=== PATIENT | male | born 1940 | race Caucasian/White ===

== ENCOUNTER 2021-02-03 10:12 | Inpatient (IN) | payer MEDICARE, MEDICAID, SELFPAY ==
[2021-02-03] VITALS (49 sets, daily range): BP systolic 110–174; BP diastolic 77–110; PULSE 61–95; RESP 12–28; TEMP 36.6–36.9; O2SAT 91–95; BMI 24.3
--- NOTE | 2021-02-03 10:27 | USR_ITS ---
PROCEDURE INFORMATION: Exam: US Duplex Right Lower Extremity Arteries Or Arterial Bypass Grafts Exam date and time: 02/03/2021 10:27 AM Age: 81 years old Clinical indication: Pain; Leg, lower; Right; Additional info: Ischemic limb TECHNIQUE: Imaging protocol: Right Real-time duplex scan of the arteries or arterial bypass grafts of the right lower extremity with 2-D diaz scale, color Doppler flow and spectral waveform analysis. Images documented and saved. COMPARISON: No relevant prior studies available. FINDINGS: Right external iliac artery: Slow flow in the right external iliac artery. Right common femoral artery: Slow flow in the right common femoral artery. Right superficial femoral artery: Occluded right superficial femoral artery. Right popliteal artery: Occluded right popliteal artery. Right calf/foot arteries: Occluded right posterior tibial artery. Occluded right dorsalis pedis artery. Soft tissues: No hematoma or collection. US/[place] [id number] IMPRESSION: 1. Slow flow in the right external iliac artery. 2. Slow flow in the right common femoral artery. 3. Occluded right superficial femoral artery. 4. Occluded right popliteal artery. 5. Occluded right posterior tibial artery. 6. Occluded right dorsalis pedis artery.
--- NOTE | 2021-02-03 10:46 | PC.NURSE ---
us in room for us
--- NOTE | 2021-02-03 10:52 | W.ED.EXTPRO ---
HPI - Extremity Problem General: Chief complaint: Extremity Injury, Lower Stated complaint: RIGHT LOWER EXT PAIN Time Seen by Provider: 02/03/21 10:12 History of Present Illness: HPI Narrative: 81-year-old male presents to the emergency room from the local longterm with complaint of a polyp pulseless ischemic cold right lower leg. Patient has known history coronary disease previous smoker. However at the bad bedside. Patient not much to historian and answer a few simple questions feeling and gives most of the detailed history. Evidently this began. morning. MD Complaint: extremity pain Onset (ago): hour(s) Pain Consistency: constant Location: right and lower extremity Quality: aching Radiation: none Relieving factors: nothing Exacerbating factors: nothing Associated symptoms: Reports myalgias; Deny arthralgias, chest pain, fever(s), rash or short of breath Review of Systems Const: Denies: fever(s) ENMT: Denies: throat pain, ear or mastoid pain, nasal discharge or nasal congestion Card: Denies: chest pain Resp: Denies: dyspnea, productive cough or non-productive cough GI: Denies: abdominal pain, nausea, vomiting, hematemesis, coffee ground emesis, diarrhea, constipation, bloating, hematochezia or melena : Denies: flank pain, dysuria, urinary frequency or urinary urgency Skin/Breast: Denies: rash PFSH ED PFSH: Medical History CAD (coronary artery disease) Social History Smoking and tobacco status: former smoker Physical Exam Const: GENERAL APPEARANCE: cooperative HENMT: COMMON NORMALS: normocephalic, atraumatic and hearing grossly normal bilaterally HEAD & SCALP: normocephalic and atraumatic Neck/C-Spine: COMMON NORMALS: no JVD Resp: COMMON NORMALS: normal respiratory effort, No retractions, No use of accessory muscles and clear to auscultation bilaterally AUSCULTATION: clear to auscultation bilaterally Cardio: COMMON NORMALS: no JVD, regular rate, regular rhythm and No murmurs present (Cardio) RATE: regular rate RHYTHM: regular rhythm GI: COMMON NORMALS: Soft to palpation and No hepatosplenomegaly present AUSCULTATION: Yes normoactive bowel sounds PALPATION: Yes Soft to palpation, No Tenderness to palpation present (GI), No Guarding due to palpation present (GI) and Yes No hepatosplenomegaly present Extremity: NARRATIVE EXTREMITY EXAM: Femoral pulse palpable on the right inguinal region no palpable pulses at the popliteal posterior tibialis or down dorsalis pedis. The lower half of the right lower leg is mottled cold to the touch and pale slightly ischemic at the toes. Bilaterally there are what appear to be chronic ischemic ulcers on the toes with dry eschars in place no sign of infection. Course Vital Signs: Vital signs: Vital Signs Temperature 98.4 F 02/03/21 10:13 Pulse Rate 68 02/03/21 11:40 Respiratory Rate 17 02/03/21 11:40 Blood Pressure 141/94 02/03/21 11:40 Pulse Oximetry 95 02/03/21 11:40 MDM - Extremity (Nontraumatic) MDM Narrative: Medical decision making narrative: Cussed with Dr. Noguera and Dr. Betancourt. Dr. Noguera will take directly to the Property Caretaker. Have started on heparin. Lab Data: Labs: Lab Results 02/03/21 02/03/21 02/03/21 Range/Units 11:03 11:03 11:03 WBC 10.6 H (4.0-10.0) 10^3/ uL RBC 5.60 H (4.1-5.3) 10^6/u L Hgb 16.8 H (11.7-16.6) g/dL Hct 51.0 (42.0-52.0) % MCV 91.1 (80-94) fL MCH 30.0 (28.0-34.0) pg MCHC 32.9 (30.0-36.0) g/dL RDW 13.1 (12.1-15.1) % Plt Count 116 L (130-400) 10^3/c mm MPV 10.2 (7.4-10.4) fL Neut % (Auto) 71.3 % Lymph % (Auto) 17.7 % Kemper % (Auto) 9.9 % Eos % (Auto) 0.4 % Baso % (Auto) 0.4 % Neut # (Auto) 7.59 (1.8-7.7) 10^3/u L Lymph # (Auto) 1.9 (0.8-4.8) 10^3/u L Kemper # (Auto) 1.1 H (0.2-0.9) 10^3/u L Eos # (Auto) 0.0 (0.0-0.8) 10^3/u L Baso # (Auto) 0.0 (0.0-0.1) 10^3/u L Nucleated RBC % (a uto) 0 % Nucleated RBCs # 0.0 /100WBC PT 15.00 H (12.1-14.9) SECO NDS INR 1.15 (0.8-1.2) APTT 25.9 (23.9-36.7) SECO NDS Sodium 137 (136-145) mmol/L Potassium 4.1 (3.5-5.1) mmol/L Chloride 104 (98-107) mmol/L Carbon Dioxide 25 (22-29) mmol/L Anion Gap 12.1 (5-19) BUN 20 (8-23) mg/dL Creatinine 0.6 L (0.7-1.2) mg/dL GFR Calculation Not Reportable Glucose 105 (65-115) mg/dL Calculated Osmolal ity 287 (285-295) mOsm/k g Calcium 9.2 (8.5-10.5) mg/dL Discharge Plan Discharge Patient Disposition: Admitted As Inpatient Clinical Impression: Ischemia of right lower extremity, CAD (coronary artery disease), Peripheral arterial disease Condition: Stable Coding Level of Care Code ED Showcase Maker for Maximilian Ortega
--- NOTE | 2021-02-03 11:05 | PC.PHAR ---
pt is from [facility]-spoke to pts nurse ferraro states the pt only takes prn medications-pts mar only has prn meds
[2021-02-03 11:11] LABS: Basophils % 0.4 %; Eosinophils % 0.4 %; Hemoglobin 16.8 g/dL (11.7-16.6); Lymphocytes # 1.9 10^3/uL (0.8-4.8); Lymphocytes % 17.7 %; Mean Corpuscular HGB Conc 32.9 g/dL (30.0-36.0); Mean Corpuscular Volume 91.1 fL (80-94); Mean Platelet Volume 10.2 fL (7.4-10.4); Monocytes # 1.1 10^3/uL (0.2-0.9); Monocytes % 9.9 %; Neutrophils # 7.59 10^3/uL (1.8-7.7); Neutrophils % 71.3 %; Nucleated Red Blood Cells % 0 %; Platelet Count 116 10^3/cmm (130-400); Red Cell Distribution Width 13.1 % (12.1-15.1); White Blood Count 10.6 10^3/uL (4.0-10.0)
[2021-02-03 11:28] LABS: Slide Review Slide Review Perform
[2021-02-03 11:30] LABS: Anion Gap 12.1 (5-19); Blood Urea Nitrogen 20 mg/dL (8-23); Calcium 9.2 mg/dL (8.5-10.5); Carbon Dioxide 25 mmol/L (22-29); Chloride 104 mmol/L (98-107); Glucose 105 mg/dL (65-115); Osmolality Calculated 287 mOsm/kg (285-295); Potassium 4.1 mmol/L (3.5-5.1); Sodium 137 mmol/L (136-145)
[2021-02-03] MEDS: heparin drip 25,000 UNIT/500 ML PREMIX 21 UNIT IV (11:36)
--- NOTE | 2021-02-03 11:36 | XACV_ITS ---
Ht: 178 cm Wt: 77 kg BSA: 1.96 m2 Gender: Male : 1940 Any Known Allergies: Other Exam Priority: Routine Procedure(s): Procedure Description: Diagnostic procedure Procedure Description: Peripheral Cath Diagnostic Procedure Procedure Description: Abdominal aortic angiography Procedure Description: Lower extremities' angiography Procedure Description: Peripheral vascular Intervention Procedure Description: PV Balloon Procedure Description: Miscellaneous Procedure Description: ACT Diagnostic Cath Status: Emergency Abdominal Diagnostic Findings Distal abdominal aorta patent. Lower Extremity Diagnostic Findings Right common iliac artery: Patent Right external iliac artery: Patent Right Profunda artery: Patent Right SFA: Ostial thrombotic occlusion. No flow was seen downstream. Left common iliac artery: Patent Left external iliac artery: Patent Left profunda artery: Patent Left SFA: Ostially occluded. It is reconstituted in the distal segment by collaterals from profunda. Below the knee imaging is not good. However popliteal and TP segments are patent. There is at least one vessel runoff to the foot and peroneal artery. Anterior tibial artery is likely occluded. Posterior tibial artery is not well visualized.. Indication 81-year-old man, custodial resident presented with cold right lower extremity. Duration of symptoms was unknown. Arterial Doppler ultrasound showed no flow from ostial SFA downstream. Patient brought emergently to Research Specialist for possible acute limb.. Lower Extremity Interventional Findings Procedure detail: We obtained access in left common femoral artery. IV heparin was used and ACT monitor. Using long sheath we went up and over into right external iliac artery. A Glidewire was used to cross the ostial occluded SFA and was advanced into TP segment. We used 5.0 x 40 mm balloon initially to dilate ostial SFA. Some flow was reestablished. Used a 5.0 x 250 mm [place] balloon to dilate the SFA from ostium to distal vessel. This was followed by balloon angioplasty with a 6.0 x 250 mm [place] balloon. At this time we performed final angiogram that showed excellent patency of the SFA artery. However patient had single-vessel runoff to the foot with patent posterior tibial artery. Glidewire and sheath were removed and switched for a short sheath. Short 6 Persian sheath was sutured in place for removal later. Conclusions Acute limb ischemia with thrombotic occlusion of the ostial SFA. Successful revascularization of the SFA. Patient has single vessel run off to the foot. Recommendations Transfer to CSU. Patient's symptom duration not known. Will need to closely follow labs and recovery of limb function as chances that the lower leg is no longer viable are high. Start Eliquis 2.5 mg BID. Continue Plavix. Pressures Phase:Rest AO : 178 / 93 ( 122 ) @ 11:28:00 AM 91 / 68 ( 79 ) @ 12:04:00 PM 105 / 61 ( 79 ) @ 12:12:00 PM 139 / 82 ( 104 ) @ 12:22:00 PM Hemodynamic Data Phase:Rest AO : 178.0 / 93.0 ( 122.0 ) @ 11:28:00 AM 91.0 / 68.0 ( 79.0 ) @ 12:04:00 PM 105.0 / 61.0 ( 79.0 ) @ 12:12:00 PM 139.0 / 82.0 ( 104.0 ) @ 12:22:00 PM Clinical Evaluation EBL: 5mL-10mL Procedural Details Procedure Consent Obtained. Pre-Procedure Time Out. Identified patient by full name and date of as verbalized by the patient/guarantor. Does the consent match the physician's order: Yes. Accurate & Complete Informed Consent: Yes. Inpatient/Outpatient History & Physical on Chart: Yes. If H&P is completed, is and addenduem needed: No; If yes, is the addendum complete: N/A. Visualize and Verify Site with Patient/Guarantor: N/A. Relevant Radiology Images available: N/A. Pre-op teaching completed and patient verbalized understanding. The risks, benefits, and alternatives of sedation and/or procedure were discussed by physician. The patient agrees to continue. Physician arrived. Procedure started. Correct patient, site and procedure confirmed by cath team. PERRLA. Strong, equal hand special education tutor bilaterally. Lungs clear x 5 lobes. IV Site on Arrival: 20 gauge in the left forearm. IV Fluids: 0.9% NaCl at KVO. 0 mL infused prior to analytical lab analyst. Pre Procedural Pulses: right dorsalis pedis was Absent. Pre Procedural Pulses: right posterior tibial was Absent. Pre Procedural Pulses: left dorsalis pedis was Doppled. Pre Procedural Pulses: left posterior tibial was Doppled. Oxygen started at 2liters/min via nasal canula. bilateral groins was prepped with chloroprep then draped in the usual sterile fashion. Equipment: Peripheral. Cardiac Cath Pack. ACIST Manifold Kit Model BT 2000. Heparinized Saline (2 units/mL), 1000 mL bag. Inventory is JJ 6F 11cm Margret Plus Sheath. Physician scrubbed in. Time out performed with cath team. Baseline sample Acquired. HR: 66 BPM. Lidocaine 1% infiltrated to the left groin. Arterial access obtained with micropuncture set. Needle and wire out. Arterial access obtained with micropuncture set. A JJ 5F RIM 65 cm Diagnostic Catheter was advanced over the wire and used for Lower extremity arteriography. RIght leg runoff 10 ml for total of 20 ml. Glidewire inserted. Catheter removed over the glide wire. Short 6 fr sheath exchanged for long 45 cm 6 fr Flexor sheath. Inventory is CK 6 FR FLEXOR SHEATH 45CM. Seeker Support catheter inserted over the wire. Glidewire and Seeker out. Hand injection performed. Hand injection performed. Glidewire inserted. Hand injection performed. Glidewire advance to right SFA. Inflation number : 1 A AB ARMADA 35 OTW [id number] was prepped and advanced across the Superficial Femoral, Right , then inflated to 8 JAMEEL for 0:36 seconds. Inflation number: 2 The AB [place] 35 OTW [id number] was reinflated across the Superficial Femoral, Right, to 8 JAMEEL for 0:33 seconds. Balloon out over wire. Right leg runoff 10 ml for total of 20 ml to check results. Inflation number : 3 A AB [place] 35 CLINICAL ADMINISTRATIVE COORDINATOR Catheter [id number] was prepped and advanced across the Superficial Femoral, Right , then inflated to 10 JAMEEL for 1:30 seconds. Inflation number: 4 The AB [place] 35 CLINICAL ADMINISTRATIVE COORDINATOR Catheter [id number] was reinflated across the Superficial Femoral, Right, to 10 JAMEEL for 1:28 seconds. Inflation number: 5 The AB [place] 35 CLINICAL ADMINISTRATIVE COORDINATOR Catheter [id number] was reinflated across the Superficial Femoral, Right, to 10 JAMEEL for 1:29 seconds. Balloon out over wire. Right leg runoff 10 ml for total of 30 ml to check results. Seeker catheter inserted over the wire. Seeker parked in popliteal. Glidewire out. Glidewire inserted to tibial peroneal trunck. Seeker out. Inflation number : 6 A AB [place] 35 CLINICAL ADMINISTRATIVE COORDINATOR Catheter [id number] was prepped and advanced across the Superficial Femoral, Right , then inflated to 6 JAMEEL for 1:31 seconds. Inflation number: 7 The AB [place] 35 CLINICAL ADMINISTRATIVE COORDINATOR Catheter [id number] was reinflated across the Superficial Femoral, Right, to 6 JAMEEL for 1:33 seconds. Inflation number: 8 The AB [place] 35 CLINICAL ADMINISTRATIVE COORDINATOR Catheter [id number] was reinflated across the Superficial Femoral, Right, to 6 JAMEEL for 1:33 seconds. Balloon out over wire. Right leg runoff through sheath. 10 ml for total of 30 ml. Glidewire out. Long 45 cm 6 fr Flexor sheath exchanged for short 6 fr sheath. A CORDIS 5F UF catheter 65cm was advanced over the wire and used for Abdominal aortogram with runoff. Abdominal aortogram performed in AP @ 10 mL/sec for a total of 30 mL. Catheter removed over the glide wire. Physician scrubbed out. A Suture was successful obtaining hemostatsis at the Left Femoral artery insertion site. Sheath(s) sutured into position with 2-0 silk and sterile 4x4's and Op-site applied over the site. No oozing or signs and symptoms of hematoma noted. Arterial sheath flushed and connected to tranducer and pressure bag with heparinized saline. Post Procedure: right posterior tibial pulse Doppled. PERRLA. Strong, equal hand special education tutor bilaterally. No VTE prophylaxis required. Medication's Wasted: Nitro = 49.7 mg. Medication's Wasted: Heparin = 1000 units. Total IV fluids: 80 mL. Contrast type used: Visipaque 320 mgI/mL, 500 mL bottle. Post-op diagnosis: Critical limb ischemia. Complications: none. Estimated blood loss: 5mL-10mL. Procedure completed. Patient transferred by bed to 1st floor. Vital chart was stopped. ACT drawn. Results 262 seconds. Therapeutic limits - pre-heparin administration 90-150 seconds and monitoring heparin during a vascular procedure >250 seconds. Access Site Site: Left Femoral artery Sheath Size: 6 Fr Hemostasis Method: Suture Hemostasis Success: Successful Procedure Medications Start: 12:17 PM Stop: 12:17 PM Medication: Versed Amount: 1 mg Route: I.V. Start: 12:17 PM Stop: 12:17 PM Medication: Fentanyl Amount: 50 mcg Route: I.V. Start: 12:47 PM Stop: 12:47 PM Medication: Heparin Amount: 3000 units Route: I.V. Start: 1:01 PM Stop: 1:01 PM Medication: Nitrogylcerin Amount: 300 mcg Route: I.A. Start: 1:26 PM Stop: 1:26 PM Medication: Heparin Amount: 2000 units Route: I.V. I, the attending physician, have reviewed and verified all procedure medications. Yes, all medications given per verbal order History/Risk Factors Hypertension: No Dyslipidemia: No Peripheral Arterial Disease (PAD): Yes Myocardial Infarction (DC): Yes Obesity: No Renal Disease: No Prior Interventions PCI: No CABG: No Valve Surgery: No Report Signatures Finalized by Jeffrey White MD on 02/19/2021 09:53 AM
[2021-02-03] MEDS: heparin 5,000 unit/mL INJ 1 mL 4000 UNIT IVP (11:37)
--- NOTE | 2021-02-03 11:44 | PM.CONSULT ---
Providers/Reason For Consult Consulting Physician/Specialty*: Jeffrey White MD/Cardiology Reason for Consult*: Acute limb ischemia of right lower extremity Requesting Physician: Dr Taylor Primary Care Provider: iRchard Cruz DO History of Present Illness History of Present Illness Darío Nix is a 81 year old male with past medical history of hypertension, coronary artery disease who has presented with right lower extremity severe pain. Patient is a residential resident. According to his daughter, residential called this morning that his right lower extremity is cold and does not have any palpable pulses. Skin mottling is also noted. Arterial duplex performed in the ER shows no flow below common femoral artery on the right side.Patient is unable to move right toes. Tender to touch. No pulses are palpable. Review of Systems General: Reports: 10 or more systems reviewed and unremarkable except in HPI and below Meds/Allergies Home Medications and Allergies Home Medications Medication Instructions Recorded Confirmed Last Taken Type acetaminophen [Tylenol] 650 mg PO Q6H PRN 02/03/21 02/03/21 02/03/21 09:00 History bisacodyl [Dulcolax (bisacodyl)] 10 mg PO DAILY PRN 02/03/21 02/03/21 Unknown History bisacodyl [Dulcolax (bisacodyl)] 10 mg RI DAILY PRN 02/03/21 02/03/21 Unknown History magnesium hydroxide [Milk of 30 ml PO DAILY PRN 02/03/21 02/03/21 Unknown History Magnesia] naloxone See Rx Instructions .ROUTE .COMPLEX 02/03/21 02/03/21 Unknown History sodium phosphates [Fleet Enema] 118 ml RI DAILY PRN 02/03/21 02/03/21 Unknown History Allergies Allergy/AdvReac Type Severity Reaction Status Date / Time naproxen [From Aleve] Allergy Unknown Verified 02/03/21 11:01 Current Medications Current Medications Generic Name Dose Route Start Last Admin Trade Name Freq PRN Reason Stop Dose Admin Heparin Sodium/Sodium Chloride 25,000 unit in 500 mls @ 0 mls/hr 02/03/21 11:00 02/03/21 11:36 Heparin Drip IV 13.62 unit/kg/hr .Q0M NAZ 21 mls/hr Administration Protocol Per Protocol PFSH Acute PFSH: Medical History CAD (coronary artery disease) Social History Smoking and tobacco status: former smoker Vitals/I&O/Wt Last Vital Signs Temp 98.4 F 02/03/21 10:13 Pulse 68 02/03/21 11:40 Resp 17 02/03/21 11:40 BP 141/94 02/03/21 11:40 Pulse Ox 95 02/03/21 11:40 Weight last 48 hrs Weight 170 lb Physical Exam Narrative: EXAM NARRATIVE: GENERAL: Patient is alert, awake and oriented x3. [] NECK: No jugular vein distension. [] HEENT: No cyanosis. No icterus. No pallor. [] HEART: Regular S1 and S2. No murmur, rub or gallop. [] LUNGS: Clear to auscultate bilaterally. [] ABDOMEN: Soft, nontender and nondistended. Positive bowel sounds. No guarding, rebound or tenderness. [] CENTRAL NERVOUS SYSTEM: Grossly nonfocal. [] EXTREMITIES: Right lower extremity is cool to touch. Unable to move right foot. Skin mottling is noted. There are small ulcers seen on the dorsum of right foot. Pulses are not palpable on the right side. Tender to touch A&P Assessment and plan (1) Limb ischemia: Status: Acute (2) CAD (coronary artery disease): Status: Acute Patient's symptom duration is not known however has features of acute limb ischemia. Doppler ultrasound confirming no flow below right common femoral artery. Patient's leg is pulseless, cold, tender to touch and he has inability to move. Mottling noted. We will proceed with peripheral angiogram with potential revascularization of right lower extremity emergently. Start heparin drip. We will follow on labs. Echocardiogram with contrast Discussed in detail with the patient and his daughter who is medical power of attorney lawyer. They understand the risks and benefits of the procedure and want to proceed with it. Thank you for involving us with the care of this patient. We will continue to follow. Please call with questions. Coding Level of Care Code Acute Civil Engineer Helper for Maximilian Ortega Diagnoses Limb ischemia I99.8 CAD (coronary artery disease) I25.10
[2021-02-03 11:46] LABS: INR 1.15 (0.8-1.2)
[2021-02-03 11:47] LABS: Partial Thromboplastin Time 25.9 SECONDS (23.9-36.7)
--- NOTE | 2021-02-03 12:09 | W.PM.OPSUD ---
Surgery/Procedure H&P Update DATE OF PROCEDURE: February 03, 2021 DATE H&P PERFORMED: 02/03/21 H&P UPDATE INFORMATION: I have reviewed H&P completed within last 30 days, I have examined patient prior to procedure and No changes to prior documentation PREOP DIAGNOSIS: Acute limb ischemia PRIMARY INDICATION FOR PROCEDURE: Acute limb ischemia PLANNED PROCEDURE: Peripheral angiogram with possible percutaneous peripheral intervention PATIENT REASSESSED PRIOR TO SEDATION, WITH NO CHANGE NOTED: Yes PHYSICAL EXAM: alert, oriented x 3, clear to auscultation bilaterally and regular rate & rhythm AIRWAY EVAL/ANESTHESIA PLAN: ASA III, Monitored Anesthesia, Local Anesthesia, Risks, benefits & alternatives of sedation and/or procedure discussed and Patient agrees to continue as planned
[2021-02-03] MEDS: clopidogrel 300 mg Tablet 600 MG PO (14:50)
[2021-02-03] MEDS: nitroglycerin 1 gm/inch oint Pkt 0.5 INCH TOPICAL (14:51)
--- NOTE | 2021-02-03 15:24 | PC.NURSE ---
received from cardiac shift lab technician via bed at 1400.report received.pt is awake.hx of dementia.oriented to self.daughter at bedside.sr on monitor.right leg is slightly discolored from knee down.cool to touch from below knee to ankle...and cold to touch at foot.post tibial pulses are dopplerable bilat.no dp pulses noted bilat.left groin with arterial sheath intact to pressurized system.drsg is dry and intact.no hematoma formation noted.instructed pt and daughter in activity restrictions s/p arterial procedure..and instructed to notify staff for any bleeding,pain,numbness..or for any concerns at all.they verb understanding of instructions.
--- NOTE | 2021-02-03 15:49 | PC.NURSE ---
right dorsalis pedis pulse now dopplerable.right leg is warm to touch to ankle now.still slightly discolored.
[2021-02-03] MEDS: amlodipine 5 mg Tablet PO (16:40)
[2021-02-03 16:53] LABS: Lactic Sepsis W/Reflex 1.4 mmol/L (0.5-2.2)
[2021-02-03 17:09] LABS: Partial Thromboplastin Time 137.5 SECONDS (23.9-36.7)
--- NOTE | 2021-02-03 17:29 | P.HP_ITS ---
Providers/Chief Complaint Admitting Physician: Jeffrey White M.D Primary Care Provider: Richard Cruz DO Chief Complaint: RIGHT LOWER EXT PAIN History of Present Illness 79-year-old with a past medical history significant for dementia, arthritis, left lower extremity DVT in 2011 previously on Coumadin, hypertension and coronary disease who presented to the hospital with right lower extremity pain and discoloration. Patient is a long-term resident halfway who apparently had noted bluish discoloration of his lower extremity earlier today. Apparently no pulse was noted and extremity was cold to touch. Daughter is at bedside however not able to provide any additional information.Laboratory workup arrival showed a WBC of 10.6, hemoglobin is 16.8, hematocrit of 51.0 and a platelet count of 116, INR 1.15, sodium 137, potassium 4.1, chloride 104, bicarb 25, BUN 20 and creatinine of 0.6.Lower extremity arterial duplex showed significantly decreased flow an arteries of right lower extremity. Interventional cardiology was consulted and patient was taken her peripheral angiogram. Postprocedure continues to complain of pain in right foot. Results of procedure pe nding.Emergency room prior to procedure patient was given Plavix 600 mg x 1 and heparin. Review of Systems General: Reports: ROS unobtainable due to mental status Medications/Allergies Home Medications Medication Instructions Recorded Confirmed Last Taken Type acetaminophen [Tylenol] 650 mg PO Q6H PRN 02/03/21 02/03/21 02/03/21 09:00 History bisacodyl [Dulcolax (bisacodyl)] 10 mg PO DAILY PRN 02/03/21 02/03/21 Unknown Hi story bisacodyl [Dulcolax (bisacodyl)] 10 mg LA DAILY PRN 02/03/21 02/03/21 Unknown History magnesium hydroxide [Milk of 30 ml PO DAILY PRN 02/03/21 02/03/21 Unknown History Magnesia] naloxone See Rx Instructions .ROUTE .COMPLEX 02/03/21 02/03/21 Unknown History sodium phosphates [Fleet Enema] 118 ml LA DAILY PRN 02/03/21 02/03/21 Unknown History Allergies Allergy/AdvReac Type Severity Reaction Status Date / Time naproxen [From Aleve] Allergy Unknown Verified 02/03/21 11:01 PFSH Acute PFSH: Medical History CAD (coronary artery disease) Social History Smoking and tobacco status: former smoker Vitals/I&O/Wt Last Vital Signs Temp 98.2 F 02/03/21 15:33 Pulse 67 02/03/21 15:33 Resp 21 H 02/03/21 15:33 BP 135/85 02/03/21 15:33 Pulse Ox 95 02/03/21 15:33 Weight last 48 hrs Weight 77.111 kg Physical Exam Narrative: EXAM NARRATIVE: General- alert and awake however not able to provide history HEENT -grossly unremarkable CVS- regular rate rhythm Chest- clear to auscultation bilaterally Abdomen-soft nontender nondistended Extremities- right lower extremity discoloration, cool to touch, unable to palpate pulses in right lower extremity Data : 02/03/21 11:03 02/03/21 11:03 A&P Assessment and plan (1) Limb ischemia: Status: Acute (2) CAD (coronary artery disease): Status: Acute (3) Dementia: Status: Acute (4) intermediate resident: Status: Acute (5) Hx of deep venous thrombosis: Status: Acute (6) Thrombocytopenia: Status: Acute Additional A&P Information Acute right lower extremity ischemia / PVOD / Reported CAD See atrial duplex noted above Plavix 600 mg loading x 1 in ER Heparin in ER - Defer to cardiology S/P peripheral angiogram - follow up on report Check Lipid panel in am NS at 100 cc/hr ECHO with contrast pending. Pain control Hypertension Started on Norvasc 5 mg PO daily Hx of LLE DVT in 2011 No longer on comadin Thrombocytopenia Etiology unclear Repeat BMP in am Dementia Stable CODE : D/W daughter at bedside who is DPOA - > A.N.D Attestations Medical Necessity Statement*: Likely require over2 midnight stay in hospital for evaluation and treatment of acute limb ischemia Time Spent in Patient Care: Greater than 35 minutes (>than 50% of time spent in counselling and/or direct pt care on unit) . Coding Level of Care Code Acute Audiometric Technician for Maximilian Ortega Diagnoses Limb ischemia I99.8 CAD (coronary artery disease) I25.10 Dementia F03.90 intermediate resident Z59.3 Hx of deep venous thrombosis Z86.718 Thrombocytopenia D69.6
[2021-02-03] MEDS: morphine 4 mg/mL SDV 1 mL 2 MG IVP ×2 (17:40→21:25)
--- NOTE | 2021-02-03 18:45 | PC.NURSE ---
incinerator plant laborer stated that NS fluids to be stopped 8 hours after starting per Dr. White.
[2021-02-03] MEDS: HYDROcodone-acetaminophen 5-325 mg Tablet 1 TAB PO (18:57)
--- NOTE | 2021-02-03 19:03 | PC.NURSE ---
bilat le's and feet remain warm to touch...with dopplerable dp and pt pulses.ptt 137.5.will recheck ptt at 1900.
--- NOTE | 2021-02-03 19:38 | PC.NURSE ---
Dr. White notified of patient stating I'm gonna have to have some kind of relief from this pain. Patient has received 2 mg Morphine and [place]. Ordered to give Tylenol.
[2021-02-03 19:39] LABS: Partial Thromboplastin Time 29.4 SECONDS (23.9-36.7)
[2021-02-03] MEDS: acetaminophen 325 mg Tablet 650 MG PO (19:42)
--- NOTE | 2021-02-03 20:10 | PC.NURSE ---
Dr. White notified of patient sometimes complaining of pain in left lower leg and sometimes in right lower leg. Patient has pain to touch in both lower legs. Patient has doppable pulses in bilateral DP and PT. Right lower leg is red and hot.
--- NOTE | 2021-02-03 20:26 | PC.NURSE ---
Dr. Peters in room to see patient.
[2021-02-03] MEDS: fentaNYL 50 mcg/mL INJ 2mL IVP (20:31)
--- NOTE | 2021-02-03 20:41 | P.MISC_ITS ---
Miscellaneous Note Purpose of Documentation: Post procedure Update Note: Patient underwent peripheral angiogram that showed occluded right ostial SFA. Balloon angioplasty was performed that restored blood flow. He has one- vessel runoff to the foot. Patient has not been able to move his foot and has decreased sensation (almost no sensation in the foot and tenderness above the ankle. Post procedure patient's foot is warm to touch. Right Leg below the knee has been tense. We will give IV Solu-Medrol, draw CBC and BMP along with a repeat lactic acid. He possibly has irreversible injury to the leg secondary to prolonged ischemic time prior to presenting to hospital. His dorsalis pedis is dopplerable. Will give more aggressive pain control. I had a discussion with the family that he may need amputation. Given the revascularization performed today, healing of stump will be much better in case of amputation. However prognosis is very guarded. They will have a discussion regarding goals of care and will inform how they want to proceed if he worsens. They may proceed with comfort care however decision has not been made yet. He is DNR DNI.
--- NOTE | 2021-02-03 21:10 | PC.NURSE ---
Sheath removed from left groin at 2040. Manual pressure held for 20 minutes. Patient tolerated well. VSS. Dressing applied. Site WNL limits. Distal pulses present per doppler. Will monitor.
[2021-02-03 21:35] LABS: Basophils % 0.3 %; Eosinophils % 0.1 %; Hematocrit 50.5 % (42.0-52.0); Hemoglobin 16.5 g/dL (11.7-16.6); Lymphocytes # 1.3 10^3/uL (0.8-4.8); Lymphocytes % 10.9 %; Mean Corpuscular HGB Conc 32.7 g/dL (30.0-36.0); Mean Corpuscular Hemoglobin 29.8 pg (28.0-34.0); Mean Corpuscular Volume 91.3 fL (80-94); Mean Platelet Volume 10.3 fL (7.4-10.4); Monocytes # 1.4 10^3/uL (0.2-0.9); Neutrophils # 8.82 10^3/uL (1.8-7.7); Neutrophils % 76.4 %; Nucleated Red Blood Cells % 0 %; Platelet Count 116 10^3/cmm (130-400); Red Blood Count 5.53 10^6/uL (4.1-5.3); Red Cell Distribution Width 13.2 % (12.1-15.1); White Blood Count 11.5 10^3/uL (4.0-10.0)
--- NOTE | 2021-02-03 21:55 | PC.NURSE ---
Patient is currently resting with eyes closed. Left groin site WNL. VSS. Will monitor.
[2021-02-03 21:57] LABS: Anion Gap 15.3 (5-19); Blood Urea Nitrogen 19 mg/dL (8-23); Calcium 8.6 mg/dL (8.5-10.5); Carbon Dioxide 21 mmol/L (22-29); Chloride 106 mmol/L (98-107); Glucose 111 mg/dL (65-115); Osmolality Calculated 289 mOsm/kg (285-295); Potassium 4.3 mmol/L (3.5-5.1); Sodium 138 mmol/L (136-145)
[2021-02-03 21:59] LABS: Lactate (Lactic Acid level) 1.2 mmol/L (0.5-2.2)
--- NOTE | 2021-02-03 22:42 | PC.NURSE ---
NS was running at 75 ml/hr upon arrival on shift. NS shut off at this time per order.
[2021-02-04] VITALS (11 sets, daily range): BP systolic 110–145; BP diastolic 77–92; PULSE 68–87; RESP 16–18; TEMP 36.6–37; O2SAT 91–94
--- NOTE | 2021-02-04 03:05 | PC.NURSE ---
Patient's bedrest time is up per order/protocol. Patient's son states, He cannot walk. His knees will give out and he will fall. He has been wheelchair bound for 2 years. Patient was positioned in high gardiner position. Left groin site WNL. Pedal pulses doppled. VSS. Will monitor. Eliquis given after bedrest per order.
[2021-02-04] MEDS: HYDROcodone-acetaminophen 5-325 mg Tablet 1 TAB PO ×3 (03:07→13:31)
[2021-02-04] MEDS: apixaban 5 mg Tablet 2.5 MG PO ×2 (03:07→17:19)
[2021-02-04 05:04] LABS: Basophils % 0.1 %; Hematocrit 53.5 % (42.0-52.0); Hemoglobin 17.7 g/dL (11.7-16.6); Lymphocytes # 0.7 10^3/uL (0.8-4.8); Lymphocytes % 6.5 %; Mean Corpuscular HGB Conc 33.1 g/dL (30.0-36.0); Mean Corpuscular Hemoglobin 30.3 pg (28.0-34.0); Mean Corpuscular Volume 91.5 fL (80-94); Mean Platelet Volume 10.5 fL (7.4-10.4); Monocytes # 0.7 10^3/uL (0.2-0.9); Monocytes % 7.1 %; Neutrophils # 8.97 10^3/uL (1.8-7.7); Neutrophils % 85.7 %; Nucleated Red Blood Cells % 0 %; Platelet Count 121 10^3/cmm (130-400); Red Blood Count 5.85 10^6/uL (4.1-5.3); Red Cell Distribution Width 13.1 % (12.1-15.1); White Blood Count 10.5 10^3/uL (4.0-10.0)
[2021-02-04 05:16] LABS: Anion Gap 15.4 (5-19); Blood Urea Nitrogen 20 mg/dL (8-23); Calcium 8.5 mg/dL (8.5-10.5); Carbon Dioxide 22 mmol/L (22-29); Chloride 104 mmol/L (98-107); Glucose 156 mg/dL (65-115); Osmolality Calculated 290 mOsm/kg (285-295); Potassium 4.4 mmol/L (3.5-5.1); Sodium 137 mmol/L (136-145)
--- NOTE | 2021-02-04 11:51 | P.PN_ITS ---
Subjective Subjective: Interval history: Patient does not have pain in the lower extremity today. However he is requiring pain medications. No sensation on the right foot. Below the knee right leg is tender to touch. Pulses are dopplerable Vitals/I&O/Wt Last Vital Signs Temp 98.6 F 02/04/21 03:17 Pulse 87 02/04/21 08:00 Resp 17 02/04/21 08:00 BP 110/77 02/04/21 08:00 Pulse Ox 94 02/04/21 08:00 02/03/21 02/04/21 02/04/21 22:59 06:59 14:59 Intake Total 500 / 500 480 / 480 Output Total 200 / 200 200 / 400 200 / 200 Balance -200 / -200 300 / 100 280 / 280 Weight last 48 hrs Weight 170 lb Physical Exam Narrative: EXAM NARRATIVE: GENERAL: Patient is alert, awake and oriented x3. [] NECK: No jugular vein distension. [] HEENT: No cyanosis. No icterus. No pallor. [] HEART: Regular S1 and S2. No murmur, rub or gallop. [] LUNGS: Clear to auscultate bilaterally. [] ABDOMEN: Soft, nontender and nondistended. Positive bowel sounds. No guarding, rebound or tenderness. [] CENTRAL NERVOUS SYSTEM: Grossly nonfocal. [] EXTREMITIES: Right lower extremity is warm to touch. No sensation in right foot. Unable to move foot. Below the knee right leg is tender to touch. Has significant purplish discoloration. Tense. Data : 02/04/21 04:35 02/04/21 04:35 A&P Assessment and plan (1) Limb ischemia: Status: Acute (2) CAD (coronary artery disease): Status: Acute With features of possible acute limb ischemia however since duration of symptoms was not known. Patient's Doppler ultrasound confirmed no flow below right common femoral artery. He underwent successful revascularization with balloon angioplasty of SFA. He has poor one-vessel runoff to the foot however pulses are dopplerable. His leg is warm to touch now however he does not have recovery of movement of right foot. Very tender leg below the knee. Possibility of irreversible damage to the right foot. I have talked in detail with the family possibility of amputation. They want to think more about it at this time however understand that amputation versus comfort care will likely be the outcome. We will discuss with surgery team erickaorrow regarding possibility of amputation. Continue Eliquis 2.5 mg twice daily Lactic acid has stayed stable. We will check another level today. Rest of the labs are normal. He is hemodynamically stable. Detailed discussion with patient's daughter and son regarding his condition and possible outcomes. Thank you for involving us with the care of this patient. We will continue to follow. Please call with questions. Attestations Medical Necessity Statement*: Care expected to cross 2 midnights. Coding Level of Care Code Acute Driller Brake Lining for Maximilian Ortega Diagnoses Limb ischemia I99.8 CAD (coronary artery disease) I25.10
--- NOTE | 2021-02-04 16:16 | PM.PN ---
Subjective Subjective: Interval history: No new clinical events overnight.Patient was complaining of pain in right lower extremity at the time of my evaluation.Pulses were noted with Doppler. No fever, chills, nausea vomiting. Medications: Reviewed: Yes Vitals/I&O/Wt Last Vital Signs Temp 98 F 02/04/21 23:32 Pulse 74 02/04/21 23:32 Resp 17 02/04/21 23:32 BP 137/84 02/04/21 23:32 Pulse Ox 94 02/04/21 23:32 02/04/21 02/04/21 02/05/21 14:59 22:59 06:59 Intake Total 720 / 720 Output Total 200 / 200 450 / 650 Balance 520 / 520 -450 / 70 Weight last 48 hrs Weight 77.111 kg Physical Exam Narrative: EXAM NARRATIVE: General- alert and awake however not able to provide history HEENT -grossly unremarkable CVS- regular rate rhythm Chest- clear to auscultation bilaterally Abdomen-soft nontender nondistended Extremities- right lower extremity warm to touch Data : 02/04/21 04:35 02/04/21 04:35 A&P Assessment and plan (1) Limb ischemia: Status: Acute (2) CAD (coronary artery disease): Status: Acute (3) Dementia: Status: Acute (4) intermediate resident: Status: Acute (5) Hx of deep venous thrombosis: Status: Acute (6) Thrombocytopenia: Status: Acute Additional A&P Information Acute right lower extremity ischemia / PVOD / Reported CAD See atrial duplex noted above Plavix 600 mg loading x 1 in ER S/P peripheral angiogram -Revascularization with balloon angioplasty of SFA. Doppler pulse noted Started on eliquis 2.5 mg PO BID IVF at 75 cc/hr ECHO pending Possible need to BKA on right Patient refused transfer Further plan pending Hypertension Norvasc 5 mg PO daily Hx of LLE DVT in 2011 No longer on comadin Thrombocytopenia Etiology unclear Repeat BMP in am Dementia Stable CODE : D/W daughter at bedside who is DPOA - > A.N.D Attestations Medical Necessity Statement*: continue hospitalization for management of peripheral vascular obstructive disease status post PCI possible need for amputation Time Spent in Patient Care: Greater than 35 minutes (>than 50% of time spent in counselling and/or direct pt care on unit). Coding Level of Care Code Acute Woodyard Crane Operator for g Fwd Diagnoses Limb ischemia I99.8 CAD (coronary artery disease) I25.10 Dementia F03.90 intermediate resident Z59.3 Hx of deep venous thrombosis Z86.718 Thrombocytopenia D69.6
[2021-02-04] MEDS: sodium chloride 0.9% 1,000 ML 75 ML IV (22:52)
[2021-02-05] VITALS (10 sets, daily range): BP systolic 125–150; BP diastolic 72–95; PULSE 71–90; RESP 15–20; TEMP 36.3–36.7; O2SAT 24–96
--- NOTE | 2021-02-05 07:30 | PM.PN ---
Subjective Subjective: Interval history: Patient has no more discomfort in the foot. His leg is tender to touch. Significantly tense. Concerns for compartment syndrome. No sensation or movement of the foot Vitals/I&O/Wt Last Vital Signs Temp 98 F 02/05/21 03:54 Pulse 71 02/05/21 06:00 Resp 18 02/05/21 03:54 BP 139/83 02/05/21 03:54 Pulse Ox 92 02/05/21 03:54 02/04/21 02/05/21 02/05/21 22:59 06:59 14:59 Intake Total 347 / 1067 Output Total 450 / 650 225 / 875 Balance -450 / 70 122 / 192 Weight last 48 hrs Weight 170 lb Physical Exam Narrative: EXAM NARRATIVE: GENERAL: Patient is alert, awake and oriented x3. [] NECK: No jugular vein distension. [] HEENT: No cyanosis. No icterus. No pallor. [] HEART: Regular S1 and S2. No murmur, rub or gallop. [] LUNGS: Clear to auscultate bilaterally. [] ABDOMEN: Soft, nontender and nondistended. Positive bowel sounds. No guarding, rebound or tenderness. [] CENTRAL NERVOUS SYSTEM: Grossly nonfocal. [] EXTREMITIES: Right lower extremity is warm to touch. No sensation in right foot. Unable to move foot. Below the knee right leg is tender to touch. Has significant purplish discoloration. Tense. Data : 02/05/21 10:55 02/05/21 10:55 A&P Assessment and plan (1) Limb ischemia: Status: Acute (2) CAD (coronary artery disease): Status: Acute Patient with features of possible acute limb ischemia however duration of symptoms was not known. Patient's Doppler ultrasound confirmed no flow below right common femoral artery. He underwent successful revascularization with balloon angioplasty of SFA. He has poor one-vessel runoff to the foot however pulses are dopplerable. His leg is warm to touch now however he does not have recovery of movement of right foot. Very tender leg below the knee. Possibility of irreversible damage to the right foot. I have talked in detail with the family possibility of amputation. They want to think more about it at this time however understand that amputation versus comfort care will likely be the outcome. We will discuss with surgery team regarding possibility of amputation. Today patient's leg is tense. There is concern of compartment syndrome post revascularization. Patient's family is still not sure if they want to proceed with any aggressive measures. However primary team has consulted orthopedic surgery incase they opt amputation. Continue Eliquis 2.5 mg twice daily Lactic acid went up last night. Reapeating lab today. He is hemodynamically stable. Detailed discussion with patient's daughter and son regarding his condition and possible outcomes. Thank you for involving us with the care of this patient. We will continue to follow. Please call with questions. Attestations Medical Necessity Statement*: Care expected to cross 2 midnights. Coding Level of Care Code Acute Assistive Technology Trainer for Maximilian Ortega Diagnoses Limb ischemia I99.8 CAD (coronary artery disease) I25.10
[2021-02-05] MEDS: HYDROcodone-acetaminophen 5-325 mg Tablet 1 TAB PO ×2 (08:06→18:14)
[2021-02-05] MEDS: amlodipine 5 mg Tablet PO (08:07)
[2021-02-05] MEDS: sodium chloride 0.9% 500 ML IV (09:18)
--- NOTE | 2021-02-05 09:22 | PC.NURSE ---
Hospitalist and powder worker are at bedside. Discussions with pt's DPOA dgtr at bedside regarding pt's condition and plans of treatments such as possible amputation on pt's right leg.
--- NOTE | 2021-02-05 09:25 | PC.NURSE ---
med informed Dr if we can hold the eliquis in case family have decided to proceed w/ amputation. Dr. White and Dr. Freedman are at bedside and received verbal order to hold the morning dose of eliquis.
[2021-02-05] MEDS: famotidine 20 mg/2 mL INJ IVP ×2 (09:50→20:48)
[2021-02-05] MEDS: piperacillin-tazobactam 3.375 GM in sodium chloride 0.9% (plus) 50 ML IV (10:44)
[2021-02-05 11:08] LABS: Basophils % 0.1 %; Hematocrit 46.4 % (42.0-52.0); Hemoglobin 15.2 g/dL (11.7-16.6); Lymphocytes # 1.5 10^3/uL (0.8-4.8); Lymphocytes % 11.3 %; Mean Corpuscular HGB Conc 32.8 g/dL (30.0-36.0); Mean Corpuscular Hemoglobin 30.5 pg (28.0-34.0); Mean Corpuscular Volume 93.2 fL (80-94); Mean Platelet Volume 10.7 fL (7.4-10.4); Monocytes % 7.3 %; Neutrophils # 10.94 10^3/uL (1.8-7.7); Neutrophils % 80.6 %; Nucleated Red Blood Cells % 0 %; Platelet Count 123 10^3/cmm (130-400); Red Blood Count 4.98 10^6/uL (4.1-5.3); Red Cell Distribution Width 13.4 % (12.1-15.1); White Blood Count 13.6 10^3/uL (4.0-10.0)
[2021-02-05 11:26] LABS: Lactate (Lactic Acid level) 2.1 mmol/L (0.5-2.2)
[2021-02-05 11:38] LABS: Alanine Aminotransferase 52 U/L (0-41); Albumin Level 2.9 g/dL (3.5-5.2); Alkaline Phosphatase 52 IU/L (40-130); Aspartate Amino Transferase 205 U/L (0-40); Blood Urea Nitrogen 30 mg/dL (8-23); Carbon Dioxide 24 mmol/L (22-29); Chloride 103 mmol/L (98-107); Chol HDL Ratio 2.41 mg/dL (1.0-5.00); Cholesterol 111 mg/dL (0-200); Globulin 2.7 g/dL (1.3-4.6); Glucose 185 mg/dL (65-115); HDL Cholesterol 46 mg/dL (60-100); LDL Cholesterol Calculated 44 mg/dL (50-129); Osmolality Calculated 291 mOsm/kg (285-295); Sodium 135 mmol/L (136-145); Thyroid Stimulating Hormone 0.51 uIU/mL (0.27-4.20); Total Bilirubin 0.4 mg/dL (0.15-1.2); Total Protein 5.6 g/dL (6.6-8.7); Triglycerides 107 mg/dL (0-150); VLDL Cholestrol Calculation 21 mg/dL (0-30)
[2021-02-05 11:39] LABS: Procalcitonin 0.08 ng/mL (0-0.5)
[2021-02-05 11:58] LABS: Iron 29 ug/dL (59-158); Percent Saturation 19.8 % (20-50); Total Iron Binding Capacity 146 mcg/dl; Unsaturated Iron Binding 117 ug/dL (112-347)
[2021-02-05] MEDS: sodium chloride 0.9% 1,000 ML 75 ML IV ×2 (12:00→20:49)
[2021-02-05 12:02] LABS: Creatine Phosphokinase 8217 U/L (39-308)
--- NOTE | 2021-02-05 14:39 | PM.CONSULT ---
Providers/Reason For Consult Consulting Physician/Specialty*: Jamar Quinn MD; orthopedic surgery Reason for Consult*: Pain/swelling right lower extremity Attending Physician: Jonas Briscoe MD Primary Care Provider: Richard Cruz DO History of Present Illness History of Present Illness Darío iNx is a 81 year old male who was admitted to the hospital on 02/03 right lower extremity pain and cyanosis. He underwent balloon angioplasty of the superficial femoral artery on 02/03/2021 with improvement of vascularity to the foot however was noted to have swelling of the knee the knee. Concerns were raised about that time about irreversible injury to the musculature due to prolonged ischemia prior to presenting to the hospital. The patient has had continued swelling and pain. Orthopedics has been asked to see the patient for treatment of the right leg. Most recently the patient has chosen hospice care and is not interested in procedures on the right leg. Meds/Allergies Home Medications and Allergies Home Medications Medication Instructions Recorded Confirmed Last Taken Type acetaminophen [Tylenol] 650 mg PO Q6H PRN 02/03/21 02/03/21 02/03/21 09:00 History bisacodyl [Dulcolax (bisacodyl)] 10 mg PO DAILY PRN 02/03/21 02/03/21 Unknown History bisacodyl [Dulcolax (bisacodyl)] 10 mg SD DAILY PRN 02/03/21 02/03/21 Unknown History magnesium hydroxide [Milk of 30 ml PO DAILY PRN 02/03/21 02/03/21 Unknown History Magnesia] naloxone See Rx Instructions .ROUTE .COMPLEX 02/03/21 02/03/21 Unknown History sodium phosphates [Fleet Enema] 118 ml SD DAILY PRN 02/03/21 02/03/21 Unknown History Allergies Allergy/AdvReac Type Severity Reaction Status Date / Time naproxen [From Aleve] Allergy Unknown Verified 02/03/21 11:01 Current Medications Current Medications Generic Name Dose Route Start Last Admin Trade Name Freq PRN Reason Stop Dose Admin Acetaminophen 650 mg 02/03/21 14:39 02/03/21 19:42 Acetaminophen 325 Mg Tablet PO 650 mg Q6H PRN Administration MILD PAIN Hydrocodone Bitart/Acetaminophen 1 tab 02/03/21 17:54 02/05/21 08:06 Hydrocodone-Acetaminophen 5-325 Mg Tablet PO 1 tab Q4H PRN Administration MODERATE PAIN Amlodipine Besylate 5 mg 02/03/21 16:11 02/05/21 08:07 Amlodipine 5 Mg Tablet PO 5 mg DAILY NAZ Administration Apixaban 2.5 mg 02/05/21 08:00 02/05/21 09:36 Apixaban 5 Mg Tablet PO Not Given Q12H NAZ Famotidine 20 mg 02/05/21 09:00 02/05/21 09:50 Famotidine 20 Mg/2 Ml Inj IVP 20 mg Q12H NAZ Administration Fentanyl 50 mcg 02/03/21 14:39 02/03/21 20:31 Fentanyl 50 Mcg/Ml Inj 2ml IVP 50 mcg PRN PRN Administration PAIN Sodium Chloride 1,000 mls @ 75 mls/hr 02/04/21 22:45 02/05/21 12:00 Sodium Chloride 0.9% IV 75 mls/hr .[id number] NAZ Administration Morphine Sulfate 2 mg 02/03/21 14:29 02/03/21 21:25 Morphine 4 Mg/Ml Sdv 1 Ml IVP 2 mg Q4H PRN Administration SEVERE PAIN PFSH Acute PFSH: Medical History CAD (coronary artery disease) Social History Smoking and tobacco status: former smoker Vitals/I&O/Wt Last Vital Signs Temp 97.7 F 02/05/21 11:59 Pulse 80 02/05/21 11:59 Resp 19 H 02/05/21 11:59 BP 131/75 02/05/21 11:59 Pulse Ox 92 02/05/21 11:59 02/04/21 02/05/21 02/05/21 22:59 06:59 14:59 Intake Total 347 / 1067 1762.5 / 1762.5 Output Total 450 / 650 225 / 875 375 / 375 Balance -450 / 70 122 / 192 1387.5 / 1387.5 Physical Exam Narrative: EXAM NARRATIVE: Patient has erythema from the dorsum of the foot over the anterior right leg. He is tender to touch over the right calf in the area is tense and swollen. He has no pain with motion of his toes but some with extremes of motion of the ankle. He has markedly diminished sensation in the right lower extremity A&P Assessment and plan (1) Limb ischemia: Mr. Nix seems to have increasing pain in the calf is worrisome for significant ischemic injury prior to revascularization. I told him the only option I would really have at this point that would offer a reliable chance of improving pain would be amputation. They have chosen hospice care. He has diminished sensation in the leg and does not feel the pain is unmanageable. I told them that if they choose to proceed with amputation I would see the patient again. Status: Acute Coding Level of Care Code Acute Aquatic Scientist for Maximilian Ortega Diagnoses Limb ischemia I99.8
--- NOTE | 2021-02-05 15:50 | P.PN_ITS ---
Subjective Subjective: Interval history: Hospital course, labs appreciated. 81 year old male who was admitted to the hospital on 02/03 right lower extremity pain and cyanosis. He underwent balloon angioplasty of the superficial femoral artery on 02/03/2021 with improvement of vascularity. Patient continued to have pain and tenderness in the leg with sensation to touch present. Patient right leg seemed more tense as compared to left on examination today which is confirmed by daughter at bedside and Dr. Cole as well. There is a concern for a pump possible compartment syndrome from revascularization injury. Further treatment plans including fistulotomy, possible amputation with or witho ut fistulotomy and possible transfer for the same versus hospice were discussed in detail with patient and patient's daughter who is also the DPOA at bedside. After extensive counseling and discussion patient's daughter after confirming with other family members have decided for hospice management. Medications: Reviewed: Yes Vitals/I&O/Wt Last Vital Signs Temp 98 F 02/05/21 15:00 Pulse 83 02/05/21 15:00 Resp 19 H 02/05/21 15:00 BP 131/78 02/05/21 15:00 Pulse Ox 93 02/05/21 15:00 02/05/21 02/05/21 02/05/21 06:59 14:59 22:59 Intake Total 347 / 1067 1812.5 / 1812.5 Output Total 225 / 875 375 / 375 Balance 122 / 192 1437.5 / 1437.5 Physical Exam Narrative: EXAM NARRATIVE: General: No acute distress, AO x 2-3 HEENT: PERRLA, pupils bilaterally equal and reactive Chest: Normal vesicular breath sounds, no added sounds, equal good air entry bilaterally CVS: S1-S2 regular, no murmurs, no tachycardia, no gallops, no rubs Abdomen: Soft, nontender, no organomegaly, bowel sounds present Neuro: No focal deficits, no facial deformity, AO x3, Extremity: GENERAL: Yes normal exam except as noted RIGHT LOWER EXTREMITY: Yes lower leg Right lower leg: Yes inspection (Tender to touch, tense on exam, erythema present on lateral aspect going up) and Yes neurovascular exam (Pulses not palpable but dopplerable) Data : 02/05/21 10:55 02/05/21 10:55 A&P Assessment and plan (1) Limb ischemia: Status: Acute (2) CAD (coronary artery disease): Status: Acute (3) Dementia: Status: Acute (4) correction resident: Status: Acute (5) Hx of deep venous thrombosis: Status: Acute (6) Thrombocytopenia: Status: Acute Additional A&P Information Acute right lower extremity ischemia / PVOD / Reported CAD Post balloon angioplasty. Continue with Eliquis 2.5 mg twice daily. Compartment syndrome: Patient has decided for hospice management. IV fluids as above. Pain control. See atrial duplex noted above Hypertension Norvasc 5 mg PO daily Hx of LLE DVT in 2011 No longer on comadin Thrombocytopenia Etiology unclear Repeat BMP in am Dementia Stable Discharge planning: After extensive discussion with family member at bedside they have decided for hospice care. Case management has been alerted. Plan to discharge back to SNF with hospice care/comfort care. Allow natural Cardiac diet. Eliquis will be DVT prophylaxis also Attestations Medical Necessity Statement*: Patient requires further hospitalization for management of acute right lower limb ischemia, compartment syndrome by the hospitalist care is set up Time Spent in Patient Care: Greater than 35 minutes (>than 50% of time spent in counselling and/or direct pt care on unit) . Coding Level of Care Code Acute Solution Strategist for Maximilian Ortega Diagnoses Limb ischemia I99.8 CAD (coronary artery disease) I25.10 Dementia F03.90 correction resident Z59.3 Hx of deep venous thrombosis Z86.718 Thrombocytopenia D69.6
--- NOTE | 2021-02-05 17:19 | PC.NURSE ---
Pt Outcomes For the outcomes knowledge of infection prevention and understand management strategies, they are considered partially met for the patient does not always remember or understand the information presented; however, patient's daughter, the power of disability attorney, is present throughout the day and verbalizes understanding.
[2021-02-05] MEDS: ferrous gluconate 324 mg Tablet PO (18:14)
[2021-02-05] MEDS: apixaban 5 mg Tablet 2.5 MG PO (20:47)
[2021-02-06] MEDS: HYDROcodone-acetaminophen 5-325 mg Tablet 1 TAB PO ×2 (01:42→07:49)
[2021-02-06 04:00] VITALS: BP 132/86; PULSE 68; RESP 14; TEMP 36.6; O2SAT 95
[2021-02-06 05:45] VITALS: PULSE 70
[2021-02-06 07:20] VITALS: BP 129/61; PULSE 77; RESP 20; TEMP 36.8; O2SAT 92
[2021-02-06] MEDS: apixaban 5 mg Tablet 2.5 MG PO (07:48)
[2021-02-06] MEDS: ferrous gluconate 324 mg Tablet PO (07:50)
--- NOTE | 2021-02-06 08:58 | PM.DCS ---
Discharge Providers Date of Admission: 02/03/21 12:15 Date of Discharge: February 06, 2021 Attending Provider at Admission: Jeffrey White M.D Attending Provider at Discharge: Jonas Briscoe MD Consults: Cardiology: Dr. White Ortho: Dr. Quinn Primary Care Provider: Richard Cruz DO Diagnoses at Discharge Discharge Diagnosis (1) Limb ischemia: Status: Acute Permanent problem details: Acute limb ischemia (2) CAD (coronary artery disease): Status: Acute (3) Dementia: Status: Acute (4) residential resident: Status: Acute (5) Hx of deep venous thrombosis: Status: Acute (6) Thrombocytopenia: Status: Acute Reason for Visit Reason for Visit: RIGHT LOWER EXT PAIN Hospital Course Hospital Course 79-year-old Darío Nix with a past medical history significant for dementia, arthritis, left lower extremity DVT in 2011 previously on Coumadin, hypertension and coronary disease who presented to the hospital with right lower extremity pain and discoloration. Patient is a long-term resident [facility] who apparently had noted bluish discoloration of his lower extremity earlier today. Apparently no pulse was noted and extremity was cold to touch. Daughter is at bedside however not able to provide any additional information.Laboratory workup arrival showed a WBC of 10.6, hemoglobin is 16.8, hematocrit of 51.0 and a platelet count of 116, INR 1.15, sodium 137, potassium 4.1, chloride 104, bicarb 25, BUN 20 and creatinine of 0.6.Lower extremity arterial duplex showed significantly decreased flow an arteries of right lower extremity. Interventional cardiology was consulted and patient was taken her peripheral angiogram and underwent balloon angioplasty SFA. Postprocedure patient had warm extremities but continued to have excruciating pain/tenderness. Patient was noted to have changes concerning for compartment syndrome from revascularization injury. Orthopedics was consulted. Further treatment plan including fistulotomy, possible amputation with or without fistulotomy with a possible need of transfer to higher facility versus hospice were discussed in detail with patient and patient's daughter who is his DPOA at bedside. Daughter after discussing with the patient and other family members decided against any aggressive treatment and for hospice services given patient's poor mental capacity, advanced dementia, poor physical capacity at baseline. His goals of care were further modified as per the discussion. He is been discharged in hemodynamically stable condition and comfortable state back to SNF for further hospice care. Physical Exam Narrative: EXAM NARRATIVE: General: No acute distress, AO x 2-3 HEENT: PERRLA, pupils bilaterally equal and reactive Chest: Normal vesicular breath sounds, no added sounds, equal good air entry bilaterally CVS: S1-S2 regular, no murmurs, no tachycardia, no gallops, no rubs Abdomen: Soft, nontender, no organomegaly, bowel sounds present Neuro: No focal deficits, no facial deformity, AO x3, Extremity: GENERAL: Yes normal exam except as noted Discharge Data Data Completed and Pending: Completed Studies During Hospitalization Category [place] [id number] Stat Ultrasound 02/03/21 10:27 Completed Pending at discharge Category Date Time Status HEATING ENGINEER request for service Stat Exams 02/03/21 11:36 Taken Labs from last 24 hours 02/05/21 02/05/21 02/05/21 10:55 10:55 10:55 WBC 13.6 H RBC 4.98 Hgb 15.2 Hct 46.4 MCV 93.2 MCH 30.5 MCHC 32.8 RDW 13.4 Plt Count 123 L MPV 10.7 H Neut % (Auto) 80.6 Lymph % (Auto) 11.3 [place] % (Auto) 7.3 Eos % (Auto) 0.0 Baso % (Auto) 0.1 Neut # (Auto) 10.94 H Lymph # (Auto) 1.5 [place] # (Auto) 1.0 H Eos # (Auto) 0.0 Baso # (Auto) 0.0 Nucleated RBC % (a uto) 0 Nucleated RBCs # 0.0 Sodium 135 L Potassium 4.0 Chloride 103 Carbon Dioxide 24 Anion Gap 12.0 BUN 30 H Creatinine 0.5 L GFR Calculation Not Reportable Glucose 185 H Calculated Osmolal ity 291 Lactate Calcium 8.0 L Iron 29 L TIBC 146 % Saturation 19.8 L Unsat Iron Binding 117 Total Bilirubin 0.4 AST 205 H ALT 52 H Alkaline Phosphata se 52 Creatine Kinase 8217 H* Total Protein 5.6 L Albumin 2.9 L Globulin 2.7 Triglycerides 107 Cholesterol 111 LDL Cholesterol, C alc 44 L Total VLDL Cholest jennifer 21 HDL Cholesterol 46 L Cholesterol/HDL Ra [place] 2.41 Procalcitonin 0.08 TSH 0.51 02/05/21 10:55 WBC RBC Hgb Hct MCV MCH MCHC RDW Plt Count MPV Neut % (Auto) Lymph % (Auto) [place] % (Auto) Eos % (Auto) Baso % (Auto) Neut # (Auto) Lymph # (Auto) [place] # (Auto) Eos # (Auto) Baso # (Auto) Nucleated RBC % (a uto) Nucleated RBCs # Sodium Potassium Chloride Carbon Dioxide Anion Gap BUN Creatinine GFR Calculation Glucose Calculated Osmolal ity Lactate 2.1 Calcium Iron TIBC % Saturation Unsat Iron Binding Total Bilirubin AST ALT Alkaline Phosphata se Creatine Kinase Total Protein Albumin Globulin Triglycerides Cholesterol LDL Cholesterol, C alc Total VLDL Cholest jennifer HDL Cholesterol Cholesterol/HDL Ra [place] Procalcitonin TSH Addt'l Data from Hospital Stay: Laboratory Results WBC 13.6 10^3/uL (4.0 -10.0) H 02/05/21 10:55 RBC 4.98 10^6/uL (4.1 -5.3) 02/05/21 10:55 Hgb 15.2 g/dL (11.7-1 6.6) 02/05/21 10:55 Hct 46.4 % (42.0-52.0 ) 02/05/21 10:55 MCV 93.2 fL (80-94) 02/05/21 10:55 MCH 30.5 pg (28.0-34. 0) 02/05/21 10:55 MCHC 32.8 g/dL (30.0-3 6.0) 02/05/21 10:55 RDW 13.4 % (12.1-15.1 ) 02/05/21 10:55 Plt Count 123 10^3/cmm (130 -400) L 02/05/21 10:55 MPV 10.7 fL (7.4-10.4 ) H 02/05/21 10:55 Neut % (Auto) 80.6 % 02/05/21 10:55 Lymph % (Auto) 11.3 % 02/05/21 10:55 [place] % (Auto) 7.3 % 02/05/21 10:55 Eos % (Auto) 0.0 % 02/05/21 10:55 Baso % (Auto) 0.1 % 02/05/21 10:55 Neut # (Auto) 10.94 10^3/uL (1. 8-7.7) H 02/05/21 10:55 Lymph # (Auto) 1.5 10^3/uL (0.8- 4.8) 02/05/21 10:55 [place] # (Auto) 1.0 10^3/uL (0.2- 0.9) H 02/05/21 10:55 Eos # (Auto) 0.0 10^3/uL (0.0- 0.8) 02/05/21 10:55 Baso # (Auto) 0.0 10^3/uL (0.0- 0.1) 02/05/21 10:55 Nucleated RBC % (a uto) 0 % 02/05/21 10:55 Nucleated RBCs # 0.0 /100WBC 02/05/21 10:55 PT 15.00 SECONDS (12 .1-14.9) H 02/03/21 11:03 INR 1.15 (0.8-1.2) 02/03/21 11:03 APTT 29.4 SECONDS (23. 9-36.7) D 02/03/21 19:15 Sodium 135 mmol/L (136-1 45) L 02/05/21 10:55 Potassium 4.0 mmol/L (3.5-5 .1) 02/05/21 10:55 Chloride 103 mmol/L (98-10 7) 02/05/21 10:55 Carbon Dioxide 24 mmol/L (22-29) 02/05/21 10:55 Anion Gap 12.0 (5-19) 02/05/21 10:55 BUN 30 mg/dL (8-23) H 02/05/21 10:55 Creatinine 0.5 mg/dL (0.7-1. 2) L 02/05/21 10:55 GFR Calculation Not Reportable 02/05/21 10:55 Glucose 185 mg/dL (65-115 ) H 02/05/21 10:55 Calculated Osmolal ity 291 mOsm/kg (285- 295) 02/05/21 10:55 Lactic Acid 1.4 mmol/L (0.5-2 .2) 02/03/21 16:28 Lactate 2.1 mmol/L (0.5-2 .2) 02/05/21 10:55 Calcium 8.0 mg/dL (8.5-10 .5) L 02/05/21 10:55 Iron 29 ug/dL (59-158) L 02/05/21 10:55 TIBC 146 mcg/dl 02/05/21 10:55 % Saturation 19.8 % (20-50) L 02/05/21 10:55 Unsat Iron Binding 117 ug/dL (112-34 7) 02/05/21 10:55 Total Bilirubin 0.4 mg/dL (0.15-1 .2) 02/05/21 10:55 AST 205 U/L (0-40) H 02/05/21 10:55 ALT 52 U/L (0-41) H 02/05/21 10:55 Alkaline Phosphata se 52 IU/L (40-130) 02/05/21 10:55 Creatine Kinase 8217 U/L (39-308) H* 02/05/21 10:55 Total Protein 5.6 g/dL (6.6-8.7 ) L 02/05/21 10:55 Albumin 2.9 g/dL (3.5-5.2 ) L 02/05/21 10:55 Globulin 2.7 g/dL (1.3-4.6 ) 02/05/21 10:55 Triglycerides 107 mg/dL (0-150) 02/05/21 10:55 Cholesterol 111 mg/dL (0-200) 02/05/21 10:55 LDL Cholesterol, C alc 44 mg/dL (50-129) L 02/05/21 10:55 Total VLDL Cholest jennifer 21 mg/dL (0-30) 02/05/21 10:55 HDL Cholesterol 46 mg/dL (60-100) L 02/05/21 10:55 Cholesterol/HDL Ra [place] 2.41 mg/dL (1.0-5 .00) 02/05/21 10:55 Procalcitonin 0.08 ng/mL (0-0.5 ) 02/05/21 10:55 TSH 0.51 uIU/mL (0.27 -4.20) 02/05/21 10:55 Impressions Duplex Scan Lower Extremity Artery 02/03/21 10:27 IMPRESSION: 1. Slow flow in the right external iliac artery. 2. Slow flow in the right common femoral artery. 3. Occluded right superficial femoral artery. 4. Occluded right popliteal artery. 5. Occluded right posterior tibial artery. 6. Occluded right dorsalis pedis artery. ADDENDUM: 02/03/21 1146 THIS REPORT CONTAINS FINDINGS THAT MAY BE CRITICAL TO PATIENT CARE. ALEXIS CAMPBELL has read and understood the report at 11:44 AM CDT on 02/03/2021. The clinician has no questions. Vitals: Last Vital Signs Temp 98.3 F 02/06/21 07:20 Pulse 77 02/06/21 07:20 Resp 20 H 02/06/21 07:20 BP 129/61 02/06/21 07:20 Pulse Ox 92 02/06/21 07:20 Discharge Plan Discharge Patient Disposition: Hospice - Medical Facility Condition: Stable Prescriptions: New amlodipine 5 mg Tablet 5 mg PO DAILY Qty: 30 RF: 0 Eliquis 5 mg Tablet 2.5 mg PO Q12H 30 Days Qty: 30 RF: 0 ferrous gluconate 324 mg (37.5 mg iron) Tablet 324 mg PO BIDWM Qty: 30 RF: 0 Continued Tylenol 325 mg Tablet 650 mg PO Q6H PRN (Reason: Pain) RF: 0 naloxone 0.4 mg/mL Solution See Rx Instructions .ROUTE .COMPLEX RF: 0 Milk of Magnesia 400 mg/5 mL Suspension 30 ml PO DAILY PRN (Reason: Constipation) RF: 0 Dulcolax (bisacodyl) 10 mg Suppository 10 mg NV DAILY PRN (Reason: Constipation) RF: 0 Fleet Enema 19-7 gram/118 mL Enema 118 ml NV DAILY PRN (Reason: Constipation) RF: 0 Dulcolax (bisacodyl) 5 mg Tablet,Delayed Release (Dr/Ec) 10 mg PO DAILY PRN (Reason: Constipation) RF: 0 Discharge Orders: Discharge Order (Routine); Ordered 02/06/21 Ordered By: Jonas Briscoe Referrals: [facility] [Outside] [facility] [place] ([facility]) [Outside] Richard Cruz DO [Primary Care Provider] - 7-10 days Discharge Diet: Cardiac Discharge Activity: Increase activity as tolerated Patient Instructions: Opioid Safety Discharge Attestations Time Spent in Discharge Care*: greater than 30 min Specific Discharge Activities: educating patient, educating and/or supporting family/caregiver, discussing with rehabilitation caseworker/social workers/dc planners, documenting/other paperwork and evaluating patient/reviewing data Status at Discharge: Cognitive status at discharge: mildly impaired cognition, Behavioral status at discharge: cooperative, Functional status at discharge: uses cane/walker Overall status at discharge: patient has a new baseline Quality Metrics Clinical Quality Measures During this hospital stay, did patient experience: None Coding Level of Care Code Acute Chg FW DC note Exam Problem Focused Diagnoses Limb ischemia I99.8 CAD (coronary artery disease) I25.10 Dementia F03.90 residential resident Z59.3 Hx of deep venous thrombosis Z86.718 Thrombocytopenia D69.6
[2021-02-06] MEDS: amlodipine 5 mg Tablet PO (09:00)
[2021-02-06] MEDS: famotidine 20 mg/2 mL INJ IVP (09:01)
[2021-02-06 10:02] VITALS: BP 129/61; PULSE 77; RESP 20; TEMP 36.8; O2SAT 92
--- NOTE | 2021-02-06 10:51 | PC.SOCIAL ---
IMM Update Gave pt and his daughter updated medicare rights. Verbalized understanding. Gave pt a copy and placed initialed, dated and timed copy in pt's chart.
[2021-02-06 11:01] VITALS: BP 132/79; PULSE 67; RESP 17; TEMP 36.5; O2SAT 95
--- NOTE | 2021-02-06 13:42 | PC.NURSE ---
Discharge to SNF Stretcher via [facility] to transport pt back to [facility]. Report was called to Lita at [facility]. Discharge packet provided.
== END 2021-02-06 13:41 | disposition hospice, inpatient (51) | DRG 253 ==
LOC: ER 12:13 → CSU 02-04 08:05
PROVIDERS: Admitting Provider Internal Medicine; Emergency Provider Family Medicine; PCP Internal Medicine; Visit Provider Student in an Organized Health Care Education/Training Program
PROC: 047K3Z1 Dilation of Right Femoral Artery using Drug-Coated Balloon, Percutaneous Approach (ICD-10-PCS; principal; 2021-02-03 12:00)
PROC: 047K3Z1 Dilation of Right Femoral Artery using Drug-Coated Balloon, Percutaneous Approach (ICD-10-PCS; 2021-02-03 12:00)
DX: I74.3 Embolism and thrombosis of arteries of the lower extremities (principal); T79.A21A Traumatic compartment syndrome of right lower extremity, initial encounter; I70.221 Atherosclerosis of native arteries of extremities with rest pain, right leg; I10 Essential (primary) hypertension; I25.10 Atherosclerotic heart disease of native coronary artery without angina pectoris; Z87.891 Personal history of nicotine dependence; F03.90 Unspecified dementia, unspecified severity, without behavioral disturbance, psychotic disturbance, mood disturbance, and anxiety; M19.90 Unspecified osteoarthritis, unspecified site; Z86.718 Personal history of other venous thrombosis and embolism; D69.6 Thrombocytopenia, unspecified
CPT/HCPCS: 36415; 37224; 51798; 75625; 75710; 80048; 80053; 80061; 82550; 83540; 83550; 83605; 84145; 84443; 85025; 85347; 85610; 85730; 93926; 96365; 99285; C1725; C1769; C1887; C1894; J1644; J2250; J2270; J2543; J2920; J3010; J3490; J7030; J7040; Q9967